=== PATIENT | female | born 1990 | race Caucasian/White ===

== ENCOUNTER 2021-11-15 23:02 | Emergency (ER) | payer OTHER ==
[~2021-11-15] VITALS: Ht 170.2 cm; Wt 77.1 kg
[2021-11-15 23:13] VITALS: BP 134/68
--- NOTE | 2021-11-15 23:23 | NUR ---
ERMD at bedside for examination
[2021-11-15] MEDS ORDERED: EPINEPHrine 1 MG/ML AMP SUBQ ONE (23:30)
[2021-11-15] MEDS ORDERED: methylPREDNISolone SS 125 MG in WATER STERILE 2 ML IV ONE (23:30)
[2021-11-15] MEDS ORDERED: diphenhydrAMINE 50 MG/ML VIAL IVP ONE (23:30)
[2021-11-15] MEDS ORDERED: NACL 0.9% 1,000 ML IV ONE (23:30)
[2021-11-15] MEDS ORDERED: methylPREDNISolone SS 125 MG/2 ML VIAL ONE (23:32)
[2021-11-15] MEDS ORDERED: WATER STERILE 10 ML MC ONE (23:32)
--- NOTE | 2021-11-16 00:20 | NUR ---
Right wrist IV removed, catheter intact and site benign. Applied folded 4x4 gauze and tape to stop bleeding.
[2021-11-16] MEDS ORDERED: PRED20TA5 PO (01:10)
[2021-11-16 01:15] VITALS: BP 124/78
--- NOTE | 2021-11-16 01:17 | NUR ---
Left AC IV removed, catheter intact and site benign. Applied folded 4x4 gauze and tape to stop bleeding.
--- NOTE | 2021-11-16 01:39 | NUR ---
The patient's care was reviewed and supervised by Marely Gil RN, RN.
--- NOTE | 2021-11-16 01:41 | NUR ---
Patient discharged with v/s stable. IV dc. Written and verbal after care instructions given and explained. Patient verbalized understanding. Ambulatory with steady gait. All questions addressed prior to discharge. Advised to follow up with PMD.
== END 2021-11-16 01:15 | disposition home or self-care (01) ==
LOC: MED 23:02
DX: T78.3XXA Angioneurotic edema, initial encounter (principal); R22.0 Localized swelling, mass and lump, head; Z79.899 Other long term (current) drug therapy; Z88.8 Allergy status to other drugs, medicaments and biological substances
CPT/HCPCS: 96361; 96372; 96374; 96375; 99284; J0171; J1200; J2930; J7030